=== PATIENT | female | born 1960 | race Caucasian/White ===

== ENCOUNTER 2020-11-18 06:31 | Outpatient (NON) | payer OTHER, SELFPAY ==
[2020-11-19 20:08] LABS: SARS-CoV-2 RNA PCR Negative
== END 2020-11-18 06:32 ==
PROVIDERS: Visit Provider Emergency Medicine
DX: Z20.828 Contact with and (suspected) exposure to other viral communicable diseases (principal)
CPT/HCPCS: C9803; U0003

== ENCOUNTER 2020-11-18 10:17 | Outpatient (CLI) | payer OTHER, SELFPAY ==
--- NOTE | ~2020-11-18 | XR_ITS ---
EXAMINATION: XR chest 2V DATE: 11/18/2020 10:31 INDICATION: Cough TECHNIQUE: PA and lateral views of the chest are obtained. COMPARISON: 10/27/2018 FINDINGS: The lungs are free of acute opacities. There is no pleural effusion or pneumothorax. The ca rdiomediastinal silhouette is normal. There is mild thoracic spondylosis. Surgical clips in the right upper quadrant are likely from prior cholecystectomy. IMPRESSION: 1. No acute cardiopulmonary abnormality. Reviewed, dictated and finalized at location A. CARD TENDER
== END 2020-11-18 10:18 | disposition home or self-care (01) ==
LOC: ANHIMG 10:22
PROVIDERS: PCP Emergency Medicine; Visit Provider Emergency Medicine
DX: R05 Cough (principal)
CPT/HCPCS: 71046; C9803; U0003

== ENCOUNTER 2021-05-29 11:26 | Outpatient (CLI) | payer OTHER, SELFPAY ==
[2021-05-29 13:35] LABS: Creatinine Urine 214.2 mg/dL
[2021-05-29 14:15] LABS: MALB Creatinine Ratio 124.6 mg/g (0-30); Microalbumin Urine Random 266.9 mg/L (0-16.7)
== END 2021-05-29 11:27 | disposition home or self-care (01) ==
PROVIDERS: PCP Emergency Medicine; Visit Provider Emergency Medicine
DX: N28.9 Disorder of kidney and ureter, unspecified (principal); E53.8 Deficiency of other specified B group vitamins
CPT/HCPCS: 36415; 82043; 82607; 87086; 87088

== ENCOUNTER 2022-07-10 12:45 | Outpatient (CLI) | payer OTHER, SELFPAY ==
--- NOTE | ~2022-07-10 | CT_ITS ---
EXAMINATION: CT lung screening DATE: 07/10/2022 13:07 INDICATION: Personal history of nicotine dependence, current smoker with 30 pack year history TECHNIQUE: Computed tomography (CT) of the chest was performed without intravenous contrast. The dose -length product (DLP) was 81.44 mGy-cm. Automated exposure control and iterative reconstruction techn ique were employed. COMPARISON: None FINDINGS: There is mild emphysema. There is a 5 mm subpleural nodule of the right lower lobe on image 71. There is a 4 mm nodule of the left lower lobe on image 67. There is a 3 mm nodule of the left lo wer lobe on image 62. Multiple fissural lymph nodes are noted in the minor fissure on the right. The lungs are free of focal airspace opacities. No pleural effusion or pneumothorax. No pathologically en larged thoracic lymph nodes are identified. The heart size is normal. Calcified pulmonary nodules and calcified left hilar and subcarinal lymph nodes are consistent with old granulomatous disease. The g allbladder is surgically absent. IMPRESSION: 1. Lung-RADS category 2: Benign appearance or behavior. Continue annual screening with noncontrast lo w-dose chest CT in 12 months. Reviewed, dictated and finalized at location B. IMPRESSION: 1. Lung-RADS category 2: Benign appearance or behavior. Continue annual screeni ng with noncontrast low-dose chest CT in 12 months.
== END 2022-07-10 12:46 | disposition home or self-care (01) ==
PROVIDERS: PCP Emergency Medicine; Visit Provider Emergency Medicine
DX: Z12.2 Encounter for screening for malignant neoplasm of respiratory organs (principal); Z87.891 Personal history of nicotine dependence
CPT/HCPCS: 71271

== ENCOUNTER 2025-08-05 14:25 | Outpatient (CLI) | payer OTHER, SELFPAY ==
--- NOTE | ~2025-08-05 | XR_ITS ---
EXAMINATION: XR chest 2V, 08/05/2025 14:50 CDT HISTORY: TOBACCO USE COMPARISON: No comparisons available. Technique: 2 views obtained. Findings: The lungs are clear, no effusion. No pneumothorax. Heart is normal size. Mediastinal and hilar contours are within normal limits. Bony thorax no acute abnormality. Impression: No acute cardiopulmonary abnormality. Reviewed, dictated and finalized at location A. Impression: No acute cardiopulmonary abnormality.
--- OUTSIDE RECORDS SUMMARY | 2025-08-05 14:33 | XMS_ITS | Encounter Summary ---
Author Organization [facility] Address [address] [place] [address] Care Team Providers Care Media Production Manager Name Role Phone Mars Wisdom MD Primary Care Provider [phone] Encounter Details Date Type Department Care Team (Late st Contact Info) Description 10/02/2021 Telephone [facility] [address] [place] [address] Connie Worrell MD [address] [address] Social History Tobacco Use Types Packs/Day Years Used Date Smoking Tobacco: Every Day Cigarettes Smokeless Tobacco: Never Alcohol Use Standard Drinks/Week Comments Never 0 (1 standard drink = 0.6 oz pur e alcohol) Comments Unknown Sex and Gender Information Value Date Recorded Sex Assigned at Not on file Legal Sex Female 8:34 AM TURNER IN Gender Identity Not on file Sexual Orientation Not on file COVID-19 Exposure Response Date Recorded In the last month, have you been in contact with someone who was confirmed or suspected to have Coronavirus / COVID-19? No / Unsure 10/01/2021 8:46 AM TURNER IN documented as of this encounter Functional Status * Is person deaf or have serious hearing difficulty? Answer Date of Assessment Author No 08/04/2021 10:38 AM CDT Diana Ramos RN * Is person blind or have serious difficulty seeing? Answer Date of Assessment Author No 08/04/2021 10:38 AM CDT Diana Ramos RN * Does person have serious difficulty walking/climbing stairs? Answer Date of Assessment Author No 08/04/2021 10:38 AM CDT Diana Ramos RN * Does person have difficulty dressing/bathing? Answer Date of Assessment Author No 08/04/2021 10:38 AM CDT Diana Ramos RN * Does person have difficulty doing errands alone? Answer Date of Assessment Author No 08/04/2021 10:38 AM NUHAT Diana Ramos RN documented as of this encounter Mental Status * Does person have difficulty concentrating/remembering/making decisions? Answer Entry Date Author No 08/04/2021 10:38 AM NUHAT Diana Ramos RN documented in this encounter Plan of Treatment Not on file documented as of this encounter Goals Goal Patient Goal Type Associated Problems Recent Progress Patient-Stated? Author Medication Management General On track( 023 2:17 PM CDT) No Tray Thomas RN Note: Expected end date: ongoing Interventions: Take all medications as prescribed Let your doctor know right away about any changes in your medications Make sure to request a refill of your medication at least one week prior to your last dose documented as of this encounter Visit Diagnoses Not on filedocumented in this encounter Additional Health Concerns Infection Onset Date Last Indicated Resolved Time COVID-19 Under Investigation 10/20/2021 10/20/2021 10/20/2021 9:20 PM TURNER IN documented as of this encounter Care Teams Media Production Manager Relationship Specialty Start Date End Date Mars Wisdom MD [address] [place] [id number] PCP - General 05/25/21 documented as of this encounter
--- OUTSIDE RECORDS SUMMARY | 2025-08-05 14:33 | XMS_ITS | Encounter Summary ---
Author Organization [facility] Health Address [address] [address] Care Team Providers Care Director Of Quality Control Name Role Phone Mars Wisdom MD Primary Care Provider [phone] Encounter Details Date Type Department Care Team ([facility] st Contact Info) Description 03/28/2022 Telephone [facility] [address] [place] [address] Connie Worrell MD [address] [address] Social History Tobacco Use Types Packs/Day Years Used Date Smoking Tobacco: Every Day Cigarettes Smokeless Tobacco: Never Alcohol Use Standard Drinks/Week Comments Never 0 (1 standard drink = 0.6 oz pur e alcohol) AUDIT-C Answer Date Recorded Q1: How often do you have a drink containing alc ohol? Never 03/07/2022 Average Number of Drinks Not on file 022 Q3: How often do you have si x or more drinks on one occasion? Never 03/07/2022 Hunger Vital Sign Answer Date Recorded Within the past 12 months, y ou worried that your food would run out before you got the money to buy more. Never true 03/08/20 22 Within the past 12 months, t he food you bought just didn't last and you didn't have money to get more. Never true 03/08/2022 Comments Unknown Sex and Gender Information Value Date Recorded Sex Assigned at Not on file Legal Sex Female 8:34 AM GRADES 1 6 TUTOR Gender Identity Not on file Sexual Orientation Not on file documented as of this encounter Functional Status * Is person deaf or have serious hearing difficulty? Answer Date of Assessment Author No 03/08/2022 10:45 PM CDT Virginia South RN * Is person blind or have serious difficulty seeing? Answer Date of Assessment Author No 03/08/2022 10:45 PM CDT Virginia South RN * Does person have serious difficulty walking/climbing stairs? Answer Date of Assessment Author No 03/08/2022 10:45 PM CDT Virginia South RN * Does person have difficulty dressing/bathing? Answer Date of Assessment Author No 03/08/2022 10:45 PM CDT Virginia South RN * Does person have difficulty doing errands alone? Answer Date of Assessment Author No 03/08/2022 10:45 PM CDT Virginia South RN documented as of this encounter Mental Status * Does person have difficulty concentrating/remembering/making decisions? Answer Entry Date Author No 03/08/2022 10:45 PM CDT Virginia South RN documented in this encounter Patient Instructions * Patient Instructions* Rock Nix - 03/28/2022 12:55 PM CDT Pt scheduled with Dr. Worrell on 03/29/2022 was bumped with a POS. Please contact pt for sooner appt. Next avail is 05/01/2022. documented in this encounter Plan of Treatment [...] Diagnoses Not on filedocumented in this encounter Care Teams Director Of Quality Control Relationship Specialty Start Date End Date Mars Wisdom MD [address] [place] [id number] PCP - General 05/25/21 documented as of this encounter
--- OUTSIDE RECORDS SUMMARY | 2025-08-05 14:33 | XMS_ITS | Encounter Summary ---
Author Organization [facility] Health Address [address] [place] [address] Care Team Providers Care Mirror Installer Name Role Phone Mars Wisdom MD Primary Care Provider [phone] Encounter Details Date Type Department Care Team (Late st Contact Info) Description 08/23/2021 Telephone [facility] [address] [place] [address] Connie Worrell MD [address] [address] Social History Tobacco Use Types Packs/Day Years Used Date Smoking Tobacco: Every Day Cigarettes Smokeless Tobacco: Never Alcohol Use Standard Drinks/Week Comments Never 0 (1 standard drink = 0.6 oz pur e alcohol) Comments Unknown Sex and Gender Information Value Date Recorded Sex Assigned at Not on file Legal Sex Female 8:34 AM LIGHTING SPECIALIST Gender Identity Not on file Sexual Orientation Not on file COVID-19 Exposure Response Date Recorded In the last month, have you been in contact with someone who was confirmed or suspected to have Coronavirus / COVID-19? No / Unsure 08/24/2021 9:38 AM CDT documented as of this encounter Functional Status [...] 08/04/2021 10:38 AM CDT Diana Ramos RN documented as of this [...] Under Investigation 10/20/2021 10/20/2021 10/20/2021 9:20 PM LIGHTING SPECIALIST documented as of this encounter Care Teams Mirror Installer Relationship Specialty Start Date End Date Mars Wisdom MD [address] [place] [id number] PCP - General 05/25/21 documented as of this encounter
--- OUTSIDE RECORDS SUMMARY | 2025-08-05 14:33 | XMS_ITS | Clinical Summary ---
Author Organization [facility] Address [address] [address] Care Team Providers Care Town Planner Name Role Phone Mars Wisdom MD Primary Care Provider [phone] Source Comments [facility],non-owned Affiliates and Associated Physician Practices is amultiple site organization consisting of ambulatory clinics and hospital sitesin [place], [place], [place] and [place]. This disclosure is being madepursuant to the Care Everywhere program and may not contain all information available regarding this patient. Last updated 18.[facility] Allergies No known active allergies Medications * Be aware that medications may not be up to date on this document. Alwaysverify current medications with the patient. albuterol HFA (Proventil; Ventolin; Proair) 108 (90 Base) MCG/ACT inhaler Inhale 2 (two) puffs by mouth every 4 hours as needed 2 Active linaCLOtide (Linzess) 145 MCG capsuleIndicatio ns:Chronic idiopathic constipation Take 1 (one) capsule by mouth daily before breakfast Take on an empty stomach at least 30 minutes prior to first meal of the day. 30 capsule 11 3 Active Additional Information Patient not taking.Reason: Provider adjusted, Reported on 04/16/2025 bisacodyl EC (Dulcolax) 5 MG tablet Take 4 tablets orally at noon 2 days before your colonoscopy. Take 4 tablets orally at noon the day before your colonoscopy 8 tablet 5 Active magnesium citrate solution Drink whole bottle at 5 PM two nights before colonoscopy. 300 mL 5 Active polyethylene glycol (Nulytely) 420 g solution Drink half of prep solution at 5pm the night before colonoscopy. Finish the prep at 4am the day of test. 4000 mL 5 Active Active Problems Problem Noted Date Diagnosed Date Constipation due to outlet dysfunction 3 S/P hernia repair 02/27/2023 Status post Casey procedure 03/07/2022 Pernicious anemia 07/23/2020 Resolved Problems Problem Noted Date Diagnosed Date Resolved Date Abdominal wall hernia 01/17/20232022 Social History Tobacco Use Types Packs/Day Years Used Date Smoking Tobacco: Every Day Cigarettes Smokeless Tobacco: Never Tobacco Cessation:Ready to Q uit: No; Counseling Given: No Alcohol Use Standard Drinks/Week Comments Never 0 (1 standard drink = 0.6 oz pur e alcohol) AUDIT-C Answer Date Recorded Q1: How often do you have a drink containing alc ohol? Never 11/14/2022 Average Number of Drinks Not on file 022 Frequency of Binge Drinking Not on file 10/19 Hunger Vital Sign Answer Date Recorded Within the past 12 months, y ou worried that your food would run out before you got the money to buy more. Never true 03/08/20 22 Within the past 12 months, t he food you bought just didn't last and you didn't have money to get more. Never true 03/08/2022 Comments No Sex and Gender Information Value Date Recorded Sex Assigned at Not on file Legal Sex Female 8:34 AM ICHTHYOLOGY TEACHER Gender Identity Not on file Sexual Orientation Not on file Last Filed Vital Signs Vital Sign Reading Time Taken Comments Blood Pressure 127/67 04/16/2025 1:10 PM CDT Pulse 86 04/16/2025 1:10 PM CDT Temperature 36.5 C (97.7 F) 04/16/2025 1:05 PM CDT Respiratory Rate 19 04/16/2025 1:10 PM CDT Oxygen Saturation 97% 04/16/2025 1:10 PM CDT Inhaled Oxygen Concentration - - Weight 70.8 kg (156 lb) 04/16/2025 11:47 AM CDT Height 149.9 cm (4' 11) 04/16/2025 11:47 AM CDT Body Mass Index 31.51 04/16/2025 11:47 AM CDT Plan of Treatment Health Maintenance Due Date Last Done Comments COLOGUARD (AGES 45-75) - COLON CA SCREENING 1960 CT COLONOGRAPHY - COLON CA SCREENING 1960 FIT - COLON CA SCREENING 1960 FLEX SIG - COLON CA SCREENING 1960 LIPID TESTING 1960 MAMMOGRAM 1960 HIV SCREENING 01/26/1976 DTAP/TDAP/TD VACCINES (1 - Tdap) 01/26/1980 PNEUMOCOCCAL VACCINE 50+ (1 of 2 - PCV) 01/26/1980 ZOSTER VACCINE (1 of 2) 2011 DEPRESSION SCREENING 11/18/2024 SCREENING FOR DIABETES 03/10/2025 , 03/09/2022, 03/08/2022, Additional history exists COVID-19 VACCINE ( - season) 2025 INFLUENZA VACCINE (#1) 2025 COLON MONITORING 04/16/2035 04/16/2025, , 11/14/2022, Additional history exists COLONOSCOPY - COLON CA SCREENING 04/16/2035 04/16/2025, 04/16/2025, 11/14/2022, Additional history exists Colorectal Cancer Screening 04/16/2035 Respiratory Syncytial Virus (RSV) Vaccine Pt: or over 60 yrs (1 - 1-dose 75+ series) 01/26/2036 HEPATITIS C SCREENING Completed 08/24/2021 HEPATITIS B VACCINE Aged Out No longe r eligible based on patient's age to complete this topic HIB VACCINE Aged Out No longer eligi ble based on patient's age to complete this topic HPV VACCINE Aged Out No longer eligi ble based on patient's age to complete this topic MENINGOCOCCAL (Group B) VACCINE SHARED DECISION-MAKING Aged Out No longer eligible based on patient's age to complete this topic MENINGOCOCCAL GROUPS A/C/Y/W VACCINE Aged Out No longer eligible based on patient's age to complete this topic Goals Goal Patient Goal Type Associated Problems Recent Progress Patient-Stated? Author Medication Management General On track( 023 2:17 PM CDT) Tray Cooper, RN Note: Expected end date: ongoing Interventions: Take all medications as prescribed Let your doctor know right away about any changes in your medications Make sure to request a refill of your medication at least one week prior to your last dose Medical Devices Implanted Type Area Freelance Digital Project Manager Device Identifier Shelf Expiration Date Model / Serial / Lot Seprafilm Implanted:Qty: 1 on 10/24/2021 by Connie Worrell MD at [facility] N/A: Colon 02/03/2024 [id number] / / [id number] Mesh Srg Phasix Sepra 8x6in Rect Mfl Implanted:Qty: 1 on 02/26/2023 by Iker Madera MD at [facility] N/A: Abdomen [employer] 08/15/2024 [id number] / / [id number] Procedures Procedure Name Priority Date/Time Associated Diagnosis Comments ENDOSCOPY, COLON, DIAGNOSTIC Routine 04/16/2025 12:40 PM CDT BASIC METABOLIC PANEL (CALCIUM TOTAL) Routine 03/10/2022 12:57 AM CDT HEPATITIS C ANTIBODY Routine 08/24/2021 3:00 PM CDT Encounter for HCV screening test for low risk patient from Last 3 Months or Most Recently Relevant to Health Maintenance Results * ENDOSCOPY, COLON, DIAGNOSTIC (04/16/2025 12:40 PM CDT) Report Endoscopy POC Endoscopy Department Report _ Patient Name: Sinai Narayanan Procedure Date: 04/16/2025 12:40 PM Date of : 1960 Classification: Outpatient Gender: Female Ethnicity: Not or Race: White _ Providers: Areli Gonzalez MD Referring MD: Procedure: Colonoscopy Indications: Slow transit constipation, s/p sigmoid resection for history of fistula Medications: Monitored Anesthesia Care Patient Profile: This is a 65 year old female. Description of Procedure: Pre-Anesthesia Assessment: - Prior to the procedure, a History and Physical was performed, and patient medications and allergies were reviewed. The patient's tolerance of previous anesthesia was also reviewed. The risks and benefits of the procedure and the sedation options and risks were discussed with the patient. All questions were answered, and informed consent was obtained. Prior Anticoagulants: The patient has taken no anticoagulant or antiplatelet agents. ASA Grade Assessment: II - A patient with mild systemic disease. After reviewing the risks and benefits, the patient was deemed in satisfactory condition to undergo the procedure. After I obtained informed consent, the scope was passed under direct vision. Throughout the procedure, the patient's blood pressure, pulse, and oxygen saturations were monitored continuously. The Colonoscope was introduced through the anus and advanced to the cecum, identified by appendiceal orifice and ileocecal valve. The colonoscopy was performed without difficulty. The patient tolerated the procedure well. The quality of the bowel preparation was evaluated using the BBPS ([place] Bowel Preparation Scale) with scores of: Right Colon = 3, Transverse Colon = 3 and Left Colon = 3 (entire mucosa seen well with no residual staining, small fragments of stool or opaque liquid). The total BBPS score equals 9. The quality of the bowel preparation was evaluated using the BBPS ([place] Bowel Preparation Scale) with scores of: Right Colon = 1 (portion of mucosa seen, but other areas not well seen due to staining, residual stool and/or opaque liquid), Transverse Colon = 2 (minor amount of residual staining, small fragments of stool and/or opaque liquid, but mucosa seen well) and Left Colon = 3 (entire mucosa seen well with no residual staining, small fragments of stool or opaque liquid). The total BBPS score equals 6. Anatomical landmarks were photographed. Findings: There was evidence of a prior end-to-side colo-rectal anastomosis in the rectum at 8 cm from the anal verge. This was patent and was characterized by healthy appearing mucosa. The anastomosis was traversed. Copious quantities of stool was found in the ascending colon and in the cecum, precluding visualization. Note that multiple sharp turns were noted in the colon. There was evidence of mild pseudomelanosis coli The exam was otherwise without abnormality. Non-bleeding external and internal hemorrhoids were found during retroflexion. The hemorrhoids were medium-sized. Estimated Blood Loss: Estimated blood loss: none. Complications: No immediate complications. Impression: - The examination was otherwise normal. - Patent end-to-side colo-rectal anastomosis, characterized by healthy appearing mucosa. - Stool in the ascending colon and in the cecum. - Non-bleeding external and internal hemorrhoids. - No specimens collected. Recommendation: - Repeat colonoscopy in 6 months with extended prep - Resume previous diet. - Needs opitimization of constipation treatment - Return to GI office. Procedure Code(s): --- Professional --- 11335, Colonoscopy, flexible; diagnostic, including collection of specimen(s) by brushing or washing, when performed (separate procedure) Diagnosis Code(s): --- Professional --- K64.8, Other hemorrhoids Z98.0, Intestinal bypass and anastomosis status K59.01, Slow transit constipation CPT copyright 2021 [employer]. All rights reserved. The codes documented in this report are preliminary and upon motor and chassis inspector review may be revised to meet current compliance requirements. Areli Gonzalez MD 04/16/2025 1:20:00 PM Note Initiated On: 04/16/2025 12:40 PM Number of Addenda: 0 [facility] [address] [place] [address] [facility] [employer] 04/16/2025 12:4 0 PM CDT us Areli Gonzalez MD GI PROCEDURE ORDERABLES Edited Result - Final [facility] [employer] * (ABNORMAL) BASIC METABOLIC PANEL (CALCIUM TOTAL) (03/10/2022 12:57 AM CDT) BUN 9 7 - 26 mg/dL 03/10/2022 2:20 AM [facility] Creatinine 0.57 0.56 - 0.96 mg/dL 03/10/2022 2:20 AM [facility] Sodium 140 136 - 145 mmol/L 03/10/2022 2:20 AM [facility] Potassium 3.4(L) 3.5 - 4.5 mmol/L 03/10/2022 2:20 AM [facility] Chloride 106 98 - 107 mmol/L 03/10/2022 2:20 AM [facility] CO2 26 22 - 29 mmol/L 03/10/2022 2:20 AM [facility] Glucose 88 70 - 115 mg/dL 03/10/2022 2:20 AM [facility] Calcium 8.7 8.4 - 10.2 mg/dL 03/10/2022 2:20 AM [facility] Anion Gap 11 8 - 18 03/10/2022 2:20 AM [facility] BUN/Creatinine Ratio 16 7 - 23 03/10/2022 2:20 AM [facility] Osmolality Calculated 288 270 - 300 mOsm/kg 03/10/2022 2:20 AM [facility] eGFR by CKD-EPI >90 >=90 mL/min/1.7 3 m2 03/10/2022 2:20 AM [facility] Blood BLOOD SPECIMEN / Unknown Lab Venipuncture / Unknown 03/10/2022 12:57 AM CDT 03/10/2022 1:54 AM T us Connie Worrell MD LAB - CHEMISTRY ORDERABLES Final Result [facility] [address] [place] [address], [facility] [phone] * HEPATITIS C ANTIBODY (08/24/2021 3:00 PM CDT) Pathologist [facility] Hepatitis C Antibody Non-react mariella Non-reac tive 08/24/2021 5:04 PM [facility] Comment:Hepatitis C Antibody screen indicates no serologic evidence of past or current infection with Hepatitis C Virus. Patients with unexplained liver disease who are immunocompromised or suspected of having acute Hepatitis C infection may benefit from Nucleic Acid Test (RITA) for Hepatitis C Viral RNA to confirm Hepatitis C status. Blood BLOOD SPECIMEN / Unknown Lab Venipuncture / Unknown 08/24/2021 3:00 PM CDT 08/24/2021 4:26 PM CDT us Marii Cardoso MD LAB - CHEMISTRY ORDERABLES Final Result [facility] [address] [place] [address], [facility] [phone] from Last 3 Months or Most Recently Relevant to Health Maintenance Insurance [facility] Proactive Comfort [facility] Advance Directives * Full Code (Latest Code Status on File) Date Activated Date Inactivated Comments 02/26/2023 9:23 AM 02/27/2023 3:52 PM * Full Code Date Activated Date Inactivated Comments 03/07/2022 3:15 PM 03/10/2022 1:07 PM * Full Code Date Activated Date Inactivated Comments 10/24/2021 7:13 PM 10/26/2021 6:53 PM Care Teams Town Planner Relationship Specialty Start Date End Date Mars Wisdom MD [address] [place] [id number] PCP - General 05/25/21
--- OUTSIDE RECORDS SUMMARY | 2025-08-05 14:33 | XMS_ITS | Encounter Summary ---
Author Organization [facility] Address [address] [place] [address] Care Team Providers Care Blast Furnace Auxiliaries Supervisor Name Role Phone Mars Wisdom MD Primary Care Provider [phone] Encounter Details Date Type Department Care Team (Late st Contact Info) Description 12/18/2021 Telephone [facility] [address] [place] [address] Connie Worrell MD [address] [phone] Social History Tobacco Use Types Packs/Day Years Used Date Smoking Tobacco: Every Day Cigarettes Smokeless Tobacco: Never Alcohol Use Standard Drinks/Week Comments Never 0 (1 standard drink = 0.6 oz pur e alcohol) AUDIT-C Answer Date Recorded Q1: How often do you have a drink containing alc ohol? Never 10/25/2021 Q2: How many drinks containi ng alcohol do you have on a typical day when you are drinking? 1 or 2 10/25/2021 Q3: How often do you have six or more drinks on one occasion? 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 Answer Date of Assessment Author No 10/25/2021 8:51 AM Rola Cai RN * Is person blind or have serious difficulty seeing? Answer Date of Assessment Author No 10/25/2021 8:51 AM Rola Cai RN * Does person have serious difficulty walking/climbing stairs? Answer Date of Assessment Author No 10/25/2021 8:51 AM Rola Cai RN * Does person have difficulty dressing/bathing? Answer Date of Assessment Author No 10/25/2021 8:51 AM Rola Cai RN * Does person have difficulty doing errands alone? Answer Date of Assessment Author No 10/25/2021 8:51 AM Rola Cai RN documented as of this encounter Mental Status * Does person have difficulty concentrating/remembering/making decisions? Answer Entry Date Author No 10/25/2021 8:51 AM Rola Cai RN documented in this encounter Plan of Treatment Not on file documented as of this encounter Goals Goal Patient Goal Type Associated Problems Recent Progress Patient-Stated? Author Medication Management General On track( 023 2:17 PM CDT) Tray Cooper RN Note: Expected end date: ongoing Interventions: Take all medications as prescribed Let your doctor know right away about any changes in your medications Make sure to request a refill of your medication at least one week prior to your last dose documented as of this encounter Visit Diagnoses Not on filedocumented in this encounter Care Teams Blast Furnace Auxiliaries Supervisor Relationship Specialty Start Date End Date Mars Wisdom MD [address] [place] [id number] PCP - General 05/25/21 documented as of this encounter
--- OUTSIDE RECORDS SUMMARY | 2025-08-05 14:33 | XMS_ITS | Encounter Summary ---
Author Organization 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
--- OUTSIDE RECORDS SUMMARY | 2025-08-05 14:33 | XMS_ITS | Clinical Summary ---
Author Organization [facility] Address [facility] [place] [address] Care Team Providers Care Electric Stove Mechanic Name Role Phone Unavailable Primary Care Provider Unavailabl e Social History Tobacco Use Types Packs/Day Years Used Date Smoking Tobacco: Never Assessed Comments Unknown Sex and Gender Information Value Date Recorded Sex Assigned at Not on file Legal Sex Female 7:26 PM CDT Gender Identity Not on file Sexual Orientation Not on file Plan of Treatment Health Maintenance Due Date Last Done Comments Cervical Cancer Screening Pa p Smear (Age 30 to 64) Every 3 Years 1961 Colorectal Cancer Screening Colonoscopy (10 Years) 1961 Annual Physical 01/26/1964 Hepatitis C 1979 DTaP, Tdap and Td Vaccines ( 1 - Tdap) 01/26/1980 Cervical Cancer Screening Pa p with HPV Testing (Age 30 to 64) Every 5 Years 1991 Cervical Cancer Screening with HPV 1991 Mammogram Screening 2001 Pneumococcal Vaccine: 50+ Ye ars (1 of 1 - PCV) 2011 Zoster Vaccines (1 of 2) 2011 COVID-19 Vaccine ( - 2023-2 5 season) 2025 RSV Immunization or 60+ Years (1 - 1-dose 75+ series) 01/26/2036 Meningococcal B Vaccine Aged Out No l onger eligible based on patient's age to complete this topic Meningococcal Vaccine Aged Out No lan xiang eligible based on patient's age to complete this topic RSV Immunizations Under 20 Months Aged Out No longer eligible based on patient's age to complete this topic
--- OUTSIDE RECORDS SUMMARY | 2025-08-05 14:33 | XMS_ITS | Encounter Summary ---
Author Organization [facility] Address [address] [place] [address] Care Team Providers Care Strip Feeder Name Role Phone Mars Wisdom MD Primary Care Provider [phone] Encounter Details Date Type Department Care Team (Late st Contact Info) Description 10/05/2021 Telephone [facility] [address] [place] [address] Connie Worrell MD [address] [phone] Social History Tobacco Use Types Packs/Day Years Used Date Smoking Tobacco: Every Day Cigarettes Smokeless Tobacco: Never Alcohol Use Standard Drinks/Week Comments Never 0 (1 standard drink = 0.6 oz pur e alcohol) Comments Unknown Sex and Gender Information Value Date Recorded Sex Assigned at Not on file 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 No / Unsure 10/01/2021 8:46 AM TENT ASSEMBLER documented as of this encounter Functional Status [...] Author No 08/04/2021 10:38 AM CDT Diana Raoms RN * Does person have difficulty dressing/bathing? [...] Under Investigation 10/20/2021 10/20/2021 10/20/2021 9:20 PM TENT ASSEMBLER documented as of this encounter Care Teams Strip Feeder Relationship Specialty Start Date End Date Mars Wisdom MD [address] [place] [id number] PCP - General 05/25/21 documented as of this encounter
--- OUTSIDE RECORDS SUMMARY | 2025-08-05 14:33 | XMS_ITS | Encounter Summary ---
Author Organization [facility] Address [address] [place] [address] Care Team Providers Care Automatic Buffer Name Role Phone Mars Wisdom MD Primary Care Provider [phone] Encounter Details Date Type Department Care Team (Late st Contact Info) Description 10/18/2021 Telephone [facility] [address] [place] [address] Connie Worrell MD [address] [phone] Social History Tobacco Use Types Packs/Day Years Used Date Smoking Tobacco: Every Day Cigarettes Smokeless Tobacco: Never Alcohol Use Standard Drinks/Week Comments Never 0 (1 standard drink = 0.6 oz pur e alcohol) Comments Unknown Sex and Gender Information Value Date Recorded Sex Assigned at Not on file Legal Sex Female 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 No / Unsure 10/01/2021 8:46 AM READING ASSISTANT documented as of this encounter Functional Status [...] Under Investigation 10/20/2021 10/20/2021 10/20/2021 9:20 PM READING ASSISTANT documented as of this encounter Care Teams Automatic Buffer Relationship Specialty Start Date End Date Mars Wisdom MD [address] [place] [id number] PCP - General 05/25/21 documented as of this encounter
[2025-08-05 16:01] LABS: Mean Corpuscular HGB Conc 33.9 g/dl (32-36); Mean Corpuscular Hemoglobin 41.3 pg (26-34); Mean Corpuscular Volume 121.7 fl (80-100); Platelet Count Result 175 k/mm3 (150-375); Red Blood Count 1.43 M/mm3 (4.2-5.4); White Blood Count 3.1 K/mm3 (4.5-10.0)
[2025-08-05 16:04] LABS: Add Urine Microscopic? YES; Appearance Urine Cloudy (Clear); Glucose Urine UA Negative (Negative); Leukocyte Esterase Ur 2+ LEU/UL (Negative); Nitrate Urine Positive (Negative); Specific Grav Ur 1.020 (1.001-1.035)
[2025-08-05 16:07] LABS: Hematocrit 17.4 % (37.0-47.0); Hemoglobin 5.9 g/dL (12.0-15.0)
[2025-08-05 16:12] LABS: Iron 255 ug/dL (37-170)
[2025-08-05 16:13] LABS: Alanine Aminotransferase 47 U/L (6-35); Albumin Level 4.1 g/dL (3.5-5.1); Alkaline Phosphatase 64 U/L (38-126); Anion Gap 1 mmol/L (4-12); Aspartate Amino Transferase 115 U/L (14-36); Bilirubin,Total 1.3 mg/dL (0.2-1.3); Blood Urea Nitrogen 11 mg/dL (7-17); Calcium 8.4 mg/dL (8.4-10.2); Carbon Dioxide 34 mmol/L (22-30); Chloride 103 mmol/L (98-107); Cholesterol 120 mg/dL (0-200); Estimated Glomerular Filt Rate > 60; Glucose 140 mg/dL (65-110); HDL Direct 16 mg/dL; Potassium 3.5 mmol/L (3.4-5.0); Sodium 138 mmol/L (137-145); Total Protein 6.8 g/dL (6.3-8.2); Triglycerides 193 mg/dL (<150)
[2025-08-05 16:17] LABS: Hemoglobin A1C 5.3 % (<5.7)
[2025-08-05 16:23] LABS: Percent Iron Saturation 75 % (20-50)
[2025-08-05 16:29] LABS: MALB Creatinine Ratio 12.8 mg/g (0-30)
[2025-08-05 16:34] LABS: Free T4 Free Thyroxine 1.41 ng/dL (0.78-2.19)
[2025-08-05 16:52] LABS: Thyroid Stimulating Hormone 3.040 uIU/mL (0.465-4.680)
[2025-08-05 17:01] LABS: Free T3 2.95 pg/mL (2.45-5.93)
[2025-08-05 17:27] LABS: Vitamin B12 < 159.0 pg/mL (239-931)
[2025-08-12 05:08] LABS: Vit. B1, Whole Blood 84.0 nmol/L (66.5-200.0)
== END 2025-08-05 14:26 | disposition home or self-care (01) ==
LOC: ANHLAB 14:31
PROVIDERS: PCP Emergency Medicine; Visit Provider Emergency Medicine
DX: R06.02 Shortness of breath (principal)
CPT/HCPCS: 36415; 71046; 80053; 80061; 81001; 82043; 82306; 82607; 82746; 83036; 83540; 83550; 84425; 84439; 84443; 84481; 85027